=== PATIENT | male | born 1990 | race Caucasian/White ===

== ENCOUNTER 2018-05-27 13:26 | Emergency (ER) | payer OTHER ==
[2018-05-27] MEDS ORDERED: Acetaminophen 500 MG TAB ONE (13:44)
--- NOTE | 2018-05-27 14:54 | CT ---
CT CERVICAL SPINE WITH CORONAL AND SAGITTAL REFORMATIONS: Date: 05/27/18 HISTORY: Fall, neck pain. FINDINGS/IMPRESSION: Cervical lordosis is maintained. Mild degenerative changes are present. No fracture, subluxation, or facet malalignment is identified. POS: [facility]
--- NOTE | 2018-05-27 15:02 | RAD ---
LEFT ELBOW 4 VIEWS: Date: 05/27/18 HISTORY: Trauma. Left elbow pain. FINDINGS/IMPRESSION: No acute fracture or dislocation is identified. POS: [facility]
--- NOTE | 2018-05-27 15:03 | CT ---
CT LUMBAR SPINE: INDICATIONS: Trauma. Fall with injury to back. TECHNIQUE: Multiple axial tomograms obtained through the lumbar spine with multiplanar reconstructions. FINDINGS: The lumbar vertebrae maintain normal height and alignment. Disk spaces are maintained. There is no evidence of compression or acute fracture. No spondylolisthesis or spondylolysis identified. Mild disk bulge is seen at the L2-L3, L3-L4, and L4-L5 levels. Disk bulges at these levels flatten t he thecal sac without significant central canal stenosis. No disk protrusion identified. IMPRESSION: 1. No evidence of acute lumbar vertebral body compression or fracture. 2. Mild nonspecific disk bulges are seen at several levels, as described. POS: [facility]
== END 2018-05-27 14:57 ==
LOC: ERS 13:26
DX: S16.1XXA Strain of muscle, fascia and tendon at neck level, initial encounter (principal); S50.02XA Contusion of left elbow, initial encounter; S30.0XXA Contusion of lower back and pelvis, initial encounter; G80.9 Cerebral palsy, unspecified; W19.XXXA Unspecified fall, initial encounter
CPT/HCPCS: 72125; 72131